=== PATIENT | female | born 1935 | race Two or more races ===

== ENCOUNTER 2020-05-17 21:28 | Emergency (ER) | payer OTHER ==
[~2020-05-17] VITALS: Ht 154.9 cm; Wt 49.9 kg
[2020-05-17 21:39] VITALS: BP 133/78
== END 2020-05-17 22:48 | disposition left against medical advice (07) ==
LOC: ER 21:28 → EDBD 21:28 → ER 22:48
DX: R06.02 Shortness of breath (principal); Z53.21 Procedure and treatment not carried out due to patient leaving prior to being seen by health care provider